=== PATIENT | female | born 1960 | race Caucasian/White ===

== ENCOUNTER 2016-09-21 00:21 | Day surgery (SDC) | payer OTHER ==
[~2016-09-21] VITALS: Ht 157.5 cm; Wt 72.0 kg
[~2016-09-21 00:21] MED LIST: BACTRIM,SEPT1 TABLET PO; CELEBREX200 MG PO; CLINDAMYCIN HC150 MG PO; LEXAPRO20 MG PO; PERCOCET 5/31 TABLET PO; flonase nasal spray
[2016-09-21 01:01] LABS: HEMATOCRIT 42.5 % (36.0-46.0); MCH 29.9 PG (29.0-34.0); MCHC 32.9 G/DL (30.0-36.0); MCV 90.8 FL (83-99); MEAN PLAT.VOLUME 10.4 uM^3 (9.5-12.4); PLATELET COUNT 271 K/uL (156-360); RBC DIS.WIDTH-SD 42.5 % (39-53); RED BLOOD COUNT 4.68 M/uL (3.80-5.20); WHITE BLOOD COUNT 4.8 K/uL (4.1-10.2)
[2016-09-21 01:09] LABS: CHLORIDE 106 mEq/L (99-109); POTASSIUM 3.7 mEq/L (3.7-5.4); SODIUM 140 mEq/L (136-147)
[2016-09-21 01:11] LABS: GLUCOSE 139 mg/dL (70-99)
[2016-09-21 01:12] LABS: ANION GAP 13 MEQ/L (2-14)
[2016-09-21 01:13] LABS: TOTAL BILIRUBIN 0.7 mg/dL (0.0-1.0)
[2016-09-21 01:16] LABS: ALKALINE PHOSPHATASE 124 IU/L (3-129); GFR ESTIMATE (CALCULATED) > 59 mL/min/; UREA NITROGEN (BUN) 8 mg/dL (9-23)
[2016-09-21 01:24] LABS: EOSINOPHIL (%) 0.6 % (0-5); IMMATURE GRANULOCYTE (%) 0.4 % (0.0-0.7); INSTRUMENT ABS NEUTROPHIL CT 3.9 K/uL; LYMPHOCYTE COUNT 0.7 K/uL (1.0-2.8); MONOCYTE (%) 0.4 % (3-12); NEUTROPHIL (%) 83.6 % (45-76); NEUTROPHIL COUNT 3.9 K/uL (1.8-6.4)
[2016-09-21 01:28] LABS: LIPASE 13 U/L (1.0-51.0)
[2016-09-21 03:18] LABS: ADD MIUA? YES; BILIRUBIN NEGATIVE; BLOOD SMALL; COLOR YELLOW ((YELLOW)); GLUCOSE (STRIP) 50; KETONES NEGATIVE; LEUKOCYTES NEGATIVE; NITRITE NEGATIVE; PROTEIN (STRIP) NEGATIVE; SPECIFIC GRAVITY 1.016 (1.000-1.030); UROBILINOGEN 0.2 MG/DL (0.2-1.0)
[2016-09-21 03:32] LABS: BACTERIA RARE /HPF; EPITHELIAL CELLS RARE /HPF; MUCUS TRACE /LPF; UCUL ADDED? NO; WHITE BLOOD CELLS 0-5 /HPF (0-5)
[2016-09-21 06:07] VITALS: BP 96/53
[2016-09-21 07:15] VITALS: BP 102/59
[2016-09-21] MEDS ORDERED: HYDROCODON-ACE1 EAC7 PO (09:33)
== END 2016-09-21 09:57 | disposition home or self-care (01) ==
LOC: EME 00:21 → SDC 03:58 → 2SOUTH 04:35 → 2EAST 06:00
PROVIDERS: Emergency Medicine
PROC: 0DTJ4ZZ Resection of Appendix, Percutaneous Endoscopic Approach (ICD-10-PCS; principal; 2016-09-21)
DX: K35.80 Unspecified acute appendicitis (principal)
CPT/HCPCS: 74177; 80053; 81003; 83605; 83690; 85007; 85025; 85027; 88304; 93005; 99281; 99285; G0378; J0330; J0744; J1100; J1170; J1885; J2405; J2710; J3010; J7030; J7120